=== PATIENT | female | born 1995 | race African-American/Black ===

== ENCOUNTER 2017-03-10 13:21 | Emergency (ER) | payer SELFPAY ==
[~2017-03-10] VITALS: Ht 162.6 cm; Wt 50.0 kg
[~2017-03-10 13:21] MED LIST: CYCL5TAB PO; NAPR-576 PO
[2017-03-10 13:22] VITALS: BP 138/72; PULSE 90; RESP 15; TEMP 98.2; O2SAT 98
--- NOTE | 2017-03-10 13:42 | PD ---
HPI Chief Complaint: Cold / Flu Symptoms Time Seen by Provider: 13:41 Travel History International Travel<30 days: No Contact w/Intl Traveler<30days: No Traveled to known affect area: No History of Present Illness HPI 21-year-old female presents to the emergency Department with complaint of sore throat, cough, nasal congestion, body aches, headache, fever 3 days. MAXIMUM TEMPERATURE 104.0 this morning. Reports popping in her ears. Denies lip and throat, difficulty swallowing, unusual drooling. Reports painful swallowing. Denies chest pain, shortness of breath. Denies vomiting, abdominal pain. His been taking Tussin for symptom management. No one else with similar symptoms. No known allergies. Has no other medical complaints. Symptoms mild in severity. No other modifying factors or associated signs and symptoms. PFSH Past Medical History ?: Not : 1 Para: 0 Miscarriage: 1 Social History Alcohol Use: No Tobacco Use: No Substance Use: Yes (MJ) Allergies-Medications (Allergen,Severity, Reaction): Coded Allergies: No Known Allergies (Unverified , 03/10/17) Reported Meds & Prescriptions Reported Meds & Active Scripts Active Naproxen 500 Mg Tab 500 Mg PO Q12HR PRN Flexeril (Cyclobenzaprine HCl) 5 Mg Tab 5 Mg PO Q8HR PRN Review of Systems Except as stated in HPI: all other systems reviewed are Neg Physical Exam Narrative GENERAL: Well-nourished, well-developed black female patient, in no acute distress; afebrile, nontoxic-appearing SKIN: Warm and dry. No rash. HEAD: Atraumatic. Normocephalic. EYES: Pupils equal and round. No scleral icterus. No injection or drainage. ENT: Mucosa pink and moist. Oropharynx with erythema; without edema or exudates. No uvular edema. No uvular, palatal, or tonsillar deviation. Airway patent. EARS: Bilateral pinnae and external canals appear within normal limits. Bilateral tympanic membranes without erythema, dullness or perforation. NECK: Trachea midline. No anterior cervical lymphadenopathy, but patient reports tenderness on palpation. CARDIOVASCULAR: Regular rate and rhythm. No murmur appreciated. RESPIRATORY: No accessory muscle use. Clear to auscultation. Breath sounds equal bilaterally. No retractions or tachypnea. GASTROINTESTINAL: Abdomen soft, non-tender, nondistended. Hepatic and splenic margins not palpable. Bowel sounds are active 4 quadrants. MUSCULOSKELETAL: No obvious deformities. No clubbing. No cyanosis. No edema. NEUROLOGICAL: Awake and alert. Oriented 3. No obvious cranial nerve deficits. Motor grossly within normal limits. Normal speech. Moves all extremities. 5/5 strength to all extremities. PSYCHIATRIC: Appropriate mood and affect; insight and judgment normal. Data Data Last Documented VS Vital Signs Date Time Temp Pulse Resp B/P (MAP) Pulse Ox O2 Delivery O2 Flow Rate FiO2 03/10/17 13:22 98.2 90 15 138/72 (94) 98 Orders Orders Influenzae A/B Antigen (03/10/17 13:41) Chest, Pa & Lat (03/10/17 13:41) Group A Rapid Strep Screen (03/10/17 13:41) Ibuprofen (Motrin) (03/10/17 13:45) Strep Culture (Group A) (03/10/17 13:50) MDM Medical Decision Making Medical Screen Exam Complete: Yes Emergency Medical Condition: Yes Medical Record Reviewed: Yes Differential Diagnosis Influenza, pharyngitis, bronchitis, pneumonia, viral illness Narrative Course 21-year-old female with cold/flu symptoms 3 days. Patient is afebrile and nontoxic appearing in the ER. She reports MAXIMUM TEMPERATURE of 104.0 at home. Physical exam is unremarkable. Ibuprofen administered in the ER. Chest x-ray, rapid strep, influenza ordered. 1424: Chest x-ray with no acute findings and no evidence of pneumonia. 1451: Rapid strep negative. Influenza is being resent per microbiology request. 1524: Influenza negative. Discussed viral illness and symptomatic management. Nasonex nasal spray, Magic mouthwash, ibuprofen prescribed for home. Instructed patient to follow up with primary care provider. Patient verbalizes understanding and agreement with treatment plan. Patient is medically cleared and stable for discharge. Discussed reasons to return to the emergency department. Patient agrees with treatment plan. The patients vital signs are stable and the patient is stable for outpatient follow-up and treatment. Patient discharged home, stable and in no acute distress. Diagnosis Primary Impression: Viral illness Referrals: [facility] Primary Care Physician Patient Instructions: Cold Symptoms (ED), General Instructions, Safe Use of Cough and Cold Medicines (ED) Departure Forms: School Release, Return to School Date: Mar 14, 2017 Tests/Procedures, Work Release Enter return to work date: Mar 12, 2017 Additional Instructions: Ibuprofen or Tylenol as instructed and as needed for fever/pain [id number] cough and cold medications as directed and as needed for symptom management Get plenty of sleep/rest Drink plenty of fluids to prevent dehydration; popsicles and Gatorade Use an air humidifier/turn off ceiling fans Follow-up with primary care provider Return immediately to the emergency department with worsening of symptoms Med/Other Pt SpecificInfo: Prescription(s) given Scripts Ibuprofen (Ibuprofen) 800 Mg Tab 800 MG PO Q6HR Y for PAIN, #20 TAB 0 Refills Prov: Meredith Mccrary 03/10/17 Cloyokfuhpmqdyy-Xztxmsqnu-Zyx-Alum-Simeth Liq (Magic Mouthwash Pediatric/Adult Liq) 60 Ml Susp 5 ML SWISH-SWAL Q3HR Y for SORE THROAT, #60 ML 0 Refills Each 5mL contains: Diphenydramine 4.5mg, Viscous Lidocaine 2% 10mg, Maalox Advanced Regular Strength 2.7ml Prov: Meredith Mccrary 03/10/17 Mometasone Nasal [place] (Nasonex Nasal [place]) 50 Mcg/Act Naspr 2 SPRAY EACH NARE DAILY Y for NASAL CONGESTION, #1 BOTTLE 0 Refills Prov: Meredith Mccrary 03/10/17 Disposition: 01 DISCHARGE HOME Condition: Stable Meredith Mccrary Mar 10, 2017 13:42
[2017-03-10] MEDS ORDERED: IBUPROFEN 800 MG TAB PO ONE (13:45)
--- NOTE | 2017-03-10 14:01 | RADRPT ---
EXAM DATE/TIME: 03/10/2017 14:03 [place] COMPARISON: No previous studies available for comparison. INDICATIONS : Fever, cough MEDICAL HISTORY : Hypertension. SURGICAL HISTORY : None. ENCOUNTER: Initial ACUITY: 3 days PAIN SCORE: 8/10 LOCATION: chest FINDINGS: PA and lateral views of the chest demonstrate the lungs to be symmetrically aerated without evidence of mass, infiltrate or effusion. The cardiomediastinal contours are unremarkable. Osseous structure s are intact. CONCLUSION: No acute disease. There is no evidence of pneumonia. Glenn Baldwin MD on March 10, 2017 at 13:59 Board Certified Radiologist. This report was verified electronically.
[2017-03-10] MEDS ORDERED: IBUP800T23 PO (15:27)
[2017-03-10] MEDS ORDERED: MOME17I EACH NARE (15:27)
[2017-03-10] MEDS ORDERED: MAGICPED SWISH-SWAL (15:27)
== END 2017-03-10 15:41 | disposition home or self-care (01) ==
LOC: NEPK 13:21
DX: B34.9 Viral infection, unspecified (principal); R05 Cough
CPT/HCPCS: 71020; 87081; 87804; 87880; 99284